=== PATIENT | female | born 1970 | race Caucasian/White ===

== ENCOUNTER 2023-09-11 14:13 | Emergency (ER) | payer OTHER ==
[~2023-09-11] VITALS: Ht 152.4 cm; Wt 62.1 kg
[2023-09-11 14:20] VITALS: BP 120/72; PULSE 94; RESP 18; TEMP 98.6; O2SAT 98
[2023-09-11] MEDS ORDERED: GLIP5TAB22 PO (14:44)
[2023-09-11] MEDS ORDERED: TAMO20TA3 PO (14:44)
== END 2023-09-11 14:51 | disposition home or self-care (01) ==
LOC: MED 14:13
DX: E11.9 Type 2 diabetes mellitus without complications (principal); Z76.0 Encounter for issue of repeat prescription; Z85.3 Personal history of malignant neoplasm of breast; Z79.84 Long term (current) use of oral hypoglycemic drugs; Z79.899 Other long term (current) drug therapy
CPT/HCPCS: 99281